=== PATIENT | male | born 1980 | race Caucasian/White ===

== ENCOUNTER 2018-04-01 03:11 | Inpatient (IN) | payer MEDICAID ==
[2018-04-01] MEDS: SOD CHLORIDE 0.9% 2,050 ML IV (03:44)
[2018-04-01 04:10] LABS: PROTIME 13.3 Sec (11.9-14.9)
[2018-04-01 04:11] LABS: PARTIAL THROMBOPLASTIN TIME 29.7 Sec (23.0-35.0)
[2018-04-01 04:12] LABS: ABNORMAL IP MESSAGE 1; HEMOGLOBIN 11.9 g/dl (14.0-18.0); MEAN CORPUSCULAR HEMOGLOBIN 29.5 pg (29.0-33.0); MEAN CORPUSCULAR HGB CONC 32.2 g/dl (32.0-37.0); MEAN CORPUSCULAR VOLUME 91.6 fl (82.0-101.0); MEAN PLATELET VOLUME 11.8 fl (7.4-10.4); PLATELET COUNT 389 10^3/UL (140-415); POSITIVE DIFF @See below; RED BLOOD COUNT 4.04 10^6/ul (4.70-6.10); RED CELL DISTRIBUTION WIDTH 13.2 % (11.5-14.5)
[2018-04-01 04:12] LABS: WHITE BLOOD COUNT 31.8 10^3/ul (4.8-10.8)
[2018-04-01] MEDS: PIPER-TAZO 3.375 GM IV (PMX) 100 ML IVPB (04:13)
[2018-04-01] MEDS: ACETAMINOPHEN 650 MG SUPP PR (04:13)
[2018-04-01 04:19] LABS: ADD MAN DIFF? YES
[2018-04-01 04:22] LABS: TROPONIN-I < 0.012 ng/ml (0.000-0.120)
[2018-04-01 04:41] LABS: ALANINE AMINOTRANSFERASE 44 IU/L (13-69); ALBUMIN 4.4 g/dl (3.3-4.9); ALBUMIN/GLOBULIN RATIO 1.07; ALKALINE PHOSPHATASE 156 IU/L (42-121); ANION GAP 13 (5-13); ASPARTATE AMINO TRANSFERASE 31 IU/L (15-46); BLOOD UREA NITROGEN 40 mg/dl (7-20); CALCIUM 10.9 mg/dl (8.4-10.2); CARBON DIOXIDE 30 mmol/L (21-31); CHLORIDE 111 mmol/L (97-110); CREATININE 1.31 mg/dl (0.61-1.24); Estimated GFR > 60 mL/min (>60); GLUCOSE 241 mg/dl (70-220); POTASSIUM 4.1 mmol/L (3.5-5.1); SODIUM 154 mmol/L (135-144); TOTAL PROTEIN 8.5 g/dl (6.1-8.1)
[2018-04-01 05:14] LABS: URINE PH (Dip) POC 5.5 (5.0-8.5)
[2018-04-01 05:14] LABS: URINE BLOOD (Dip) POC Negative (NEGATIVE); URINE GLUCOSE (Dip) POC Negative (NEGATIVE); URINE KETONES (Dip) POC Negative (NEGATIVE); URINE LEUKOCYTE EST (Dip) POC Negative (NEGATIVE); URINE NITRITE (Dip) POC Positive (NEGATIVE); URINE TOTAL PROTEIN POC 1+ (NEGATIVE)
[2018-04-01] MEDS: VANCOMYCIN 1 GM (PMX) 250 ML IVPB (05:44)
[2018-04-01 05:54] LABS: ADD UMIC YES; UR ASCORBIC ACID 40 mg/dL (NEGATIVE); UR BACTERIA FEW /HPF (NONE SEEN); UR BILIRUBIN (Dip) NEGATIVE (NEGATIVE); UR BLOOD (Dip) NEGATIVE (NEGATIVE); UR CLARITY SLIGHTLY CLOUDY (CLEAR); UR COLOR YELLOW (YELLOW); UR GLUCOSE (Dip) NEGATIVE (NEGATIVE); UR KETONES (Dip) NEGATIVE (NEGATIVE); UR LEUKOCYTE ESTERASE (Dip) NEGATIVE Leu/ul (NEGATIVE); UR MUCUS FEW /HPF (NONE SEEN); UR NITRITE (Dip) NEGATIVE (NEGATIVE); UR RBC 1 /HPF (0-5); UR SQUAMOUS EPITHELIAL CELL FEW /HPF (FEW); UR TOTAL PROTEIN (Dip) 1+ mg/dl (NEGATIVE); UR UROBILINOGEN (Dip) NEGATIVE (NEGATIVE); UR WBC 5 /HPF (0-5)
[2018-04-01] MEDS ORDERED: ALBUTEROL/IPRATROPIUM (NEB) 3 ML AMP HHN (06:00)
[2018-04-01] MEDS ORDERED: HYDROCODONE/APAP (5/325) TAB PO ×2 (06:00)
[2018-04-01] MEDS ORDERED: ONDANSETRON 4 MG INJ IV (06:00)
[2018-04-01] MEDS ORDERED: NACL 0.9% 3 ML SYG IV (06:00)
[2018-04-01] MEDS ORDERED: DEXTROSE 5% 1,000 ML IV (08:00)
[2018-04-01] MEDS ORDERED: VANCOMYCIN IV PER PHARMACY XX (08:00)
[2018-04-01 08:11] LABS: ANISOCYTOSIS 1+ (0-0); BAND NEUTROPHILS #M 2.5 10^3/ul (0.0-0.6); BAND NEUTROPHILS % (M) 8 % (0-4); BASOPHIL #M 0.3 10^3/ul (0.0-0.0); BASOPHILS % (M) 1 % (0-2); LYMPHOCYTES #M 2.5 10^3/ul (0.8-2.9); LYMPHOCYTES % (M) 8 % (15-51); MICROCYTOSIS 1+ (0-0); MONOCYTE #M 1.2 10^3/ul (0.3-0.9); MONOCYTES % (M) 4 % (0-11); PLATELET ESTIMATE NORMAL; POLYCHROMASIA 1+ (0-0); SEG NEUT #M 25.9 10^3/ul (1.6-7.5); SEGMENTED NEUTROPHILS (M) % 79 % (39-77); SMUDGE%M 3 % (0-0)
[2018-04-01 08:24] LABS: CREATININE,URINE RANDOM 121.47 mg/dl (20-370)
[2018-04-01 08:24] LABS: SODIUM,URINE RANDOM 25 mmol/L (30-90)
[2018-04-01] MEDS ORDERED: AZITHROMYCIN 500MG/NS (PMX) 250 ML IVPB (09:00)
[2018-04-01 09:26] LABS: LACTIC ACID 0.9 mmol/L (0.5-2.0)
[2018-04-01] MEDS: SOD CHLORIDE 0.45% 1,000 ML IV ×2 (09:45→21:54)
[2018-04-01] MEDS: CEFEPIME 1GM/50 ML (PMX) 50 ML IVPB (09:53)
[2018-04-01] MEDS: ENOXAPARIN 40 MG/0.4 ML SYG SC (09:55)
[2018-04-01 10:31] LABS: OSMOLALITY,URINE 615 mOsm/kg (250-1200)
[2018-04-01] MEDS ORDERED: GUAIFENESIN/DM 5ML CUP GTB (14:00)
[2018-04-01] MEDS: INSULIN ASPART [NOVOLOG] 3 ML PEN SC ×2 (17:00→20:34)
[2018-04-01] MEDS: VANCOMYCIN HCL 250 MG/5ML POSYG PO ×2 (17:10→17:18)
[2018-04-01] MEDS: INFLUENZA VIRUS VACCINE 0.5 ML (DISPENSING) IM* (17:12)
[2018-04-01] MEDS: FAMOTIDINE 20 MG TAB GTB (20:34)
[2018-04-01] MEDS: LACTOBACILLUS RHAMNOSUS CAP GTB (20:34)
[2018-04-02] MEDS: VANCOMYCIN HCL 250 MG/5ML POSYG PO ×5 (00:01→23:45)
[2018-04-02] MEDS: INSULIN ASPART [NOVOLOG] 3 ML PEN SC ×6 (00:01→20:31)
[2018-04-02] MEDS: ACCU-CHEK XX (02:00)
[2018-04-02 05:50] LABS: ADD MAN DIFF? NO
[2018-04-02 05:54] LABS: BASOPHIL # 0.1 10^3/ul (0.0-0.1); BASOPHILS % 0.4 % (0.0-2.0); EOSINOPHILS # 0.4 10^3/ul (0.0-0.5); HEMATOCRIT 32.7 % (42.0-52.0); HEMOGLOBIN 10.3 g/dl (14.0-18.0); LYMPHOCYTES # 1.7 10^3/ul (0.8-2.9); MEAN CORPUSCULAR HGB CONC 31.5 g/dl (32.0-37.0); MEAN CORPUSCULAR VOLUME 92.1 fl (82.0-101.0); MEAN PLATELET VOLUME 11.2 fl (7.4-10.4); MONOCYTE # 0.9 10^3/ul (0.3-0.9); MONOCYTES % 4.7 % (0.0-11.0); NEUTROPHIL # 16.1 10^3/ul (1.6-7.5); PLATELET COUNT 369 10^3/UL (140-415); RED BLOOD COUNT 3.55 10^6/ul (4.70-6.10); RED CELL DISTRIBUTION WIDTH 13.2 % (11.5-14.5)
[2018-04-02 05:54] LABS: WHITE BLOOD COUNT 19.3 10^3/ul (4.8-10.8)
[2018-04-02] MEDS: VANCOMYCIN 1 GM 250 ML IVPB (06:38)
[2018-04-02 06:42] LABS: ALANINE AMINOTRANSFERASE 62 IU/L (13-69); ALBUMIN 3.6 g/dl (3.3-4.9); ALBUMIN/GLOBULIN RATIO 0.97; ALKALINE PHOSPHATASE 113 IU/L (42-121); ANION GAP 6 (5-13); ASPARTATE AMINO TRANSFERASE 55 IU/L (15-46); BLOOD UREA NITROGEN 26 mg/dl (7-20); CALCIUM 9.8 mg/dl (8.4-10.2); CARBON DIOXIDE 27 mmol/L (21-31); CHLORIDE 118 mmol/L (97-110); CREATININE 0.95 mg/dl (0.61-1.24); Estimated GFR > 60 mL/min (>60); GLUCOSE 153 mg/dl (70-220); MAGNESIUM 2.1 mg/dl (1.7-2.5); POTASSIUM 3.7 mmol/L (3.5-5.1); SODIUM 151 mmol/L (135-144); TOTAL PROTEIN 7.3 g/dl (6.1-8.1)
[2018-04-02] MEDS: SOD CHLORIDE 0.45% 1,000 ML IV ×3 (07:12→23:52)
[2018-04-02 07:15] LABS: THYROID STIMULATING HORMONE 0.592 MIU/L (0.465-4.680)
[2018-04-02 07:23] LABS: HEMOGLOBIN A1C 5.5 % (0-5.9)
[2018-04-02] MEDS: LACTOBACILLUS RHAMNOSUS CAP GTB ×3 (08:15→20:06)
[2018-04-02] MEDS: AZITHROMYCIN 250 MG TAB PEG (08:15)
[2018-04-02] MEDS: ENOXAPARIN 40 MG/0.4 ML SYG SC (08:34)
[2018-04-02 09:26] LABS: PHOSPHORUS 3.4 mg/dl (2.5-4.9)
[2018-04-02 15:42] LABS: CREATININE, RANDOM URINE 116 mg/dL (20-320); MICROALBUMIN 11.6 mg/dL; MICROALBUMIN/CREATININE RATIO 100 (<30)
[2018-04-02] MEDS: FAMOTIDINE 20 MG TAB GTB (20:07)
[2018-04-03] MEDS: INSULIN ASPART [NOVOLOG] 3 ML PEN SC ×6 (01:00→21:00)
[2018-04-03] MEDS: ACCU-CHEK XX (02:00)
[2018-04-03] MEDS: VANCOMYCIN HCL 1.5 GM in SOD CHLORIDE 0.9% 250 ML IVPB (05:30)
[2018-04-03 06:21] LABS: ADD MAN DIFF? NO
[2018-04-03 06:27] LABS: WHITE BLOOD COUNT 14.1 10^3/ul (4.8-10.8)
[2018-04-03 06:27] LABS: BASOPHILS % 0.3 % (0.0-2.0); EOSINOPHILS # 0.5 10^3/ul (0.0-0.5); EOSINOPHILS % 3.6 % (0.0-7.0); HEMATOCRIT 31.2 % (42.0-52.0); LYMPHOCYTES # 1.7 10^3/ul (0.8-2.9); LYMPHOCYTES % 12.2 % (15.0-51.0); MEAN CORPUSCULAR HEMOGLOBIN 28.7 pg (29.0-33.0); MEAN CORPUSCULAR HGB CONC 32.1 g/dl (32.0-37.0); MEAN CORPUSCULAR VOLUME 89.7 fl (82.0-101.0); MEAN PLATELET VOLUME 11.2 fl (7.4-10.4); MONOCYTE # 0.8 10^3/ul (0.3-0.9); MONOCYTES % 5.4 % (0.0-11.0); NEUTROPHIL # 10.9 10^3/ul (1.6-7.5); NEUTROPHILS % 77.8 % (39.0-77.0); PLATELET COUNT 364 10^3/UL (140-415); RED BLOOD COUNT 3.48 10^6/ul (4.70-6.10); RED CELL DISTRIBUTION WIDTH 12.8 % (11.5-14.5)
[2018-04-03] MEDS: VANCOMYCIN HCL 250 MG/5ML POSYG PO ×3 (06:35→16:48)
[2018-04-03 06:56] LABS: ANION GAP 9 (5-13); BLOOD UREA NITROGEN 22 mg/dl (7-20); CALCIUM 9.5 mg/dl (8.4-10.2); CARBON DIOXIDE 26 mmol/L (21-31); CHLORIDE 111 mmol/L (97-110); CREATININE 0.75 mg/dl (0.61-1.24); Estimated GFR > 60 mL/min (>60); GLUCOSE 130 mg/dl (70-220); PHOSPHORUS 3.8 mg/dl (2.5-4.9); POTASSIUM 3.5 mmol/L (3.5-5.1); SODIUM 146 mmol/L (135-144)
[2018-04-03] MEDS: AZITHROMYCIN 250 MG TAB PEG (08:18)
[2018-04-03] MEDS: LACTOBACILLUS RHAMNOSUS CAP GTB ×4 (08:18→21:32)
[2018-04-03] MEDS: ENOXAPARIN 40 MG/0.4 ML SYG SC (08:29)
[2018-04-03] MEDS: SOD CHLORIDE 0.45% 1,000 ML IV (09:27)
[2018-04-03] MEDS: FAMOTIDINE 20 MG TAB GTB (21:32)
[2018-04-04] MEDS: INSULIN ASPART [NOVOLOG] 3 ML PEN SC ×6 (00:33→21:00)
[2018-04-04] MEDS: VANCOMYCIN HCL 250 MG/5ML POSYG PO ×4 (00:34→17:21)
[2018-04-04] MEDS: SOD CHLORIDE 0.45% 1,000 ML IV ×2 (00:34→05:30)
[2018-04-04] MEDS: ACCU-CHEK XX (02:00)
[2018-04-04] MEDS: VANCOMYCIN HCL 1.5 GM in SOD CHLORIDE 0.9% 250 ML IVPB (05:56)
[2018-04-04 06:20] LABS: ADD MAN DIFF? NO
[2018-04-04 06:28] LABS: BASOPHILS % 0.4 % (0.0-2.0); EOSINOPHILS # 0.3 10^3/ul (0.0-0.5); EOSINOPHILS % 3.5 % (0.0-7.0); HEMATOCRIT 29.6 % (42.0-52.0); HEMOGLOBIN 9.6 g/dl (14.0-18.0); LYMPHOCYTES # 1.6 10^3/ul (0.8-2.9); LYMPHOCYTES % 17.2 % (15.0-51.0); MEAN CORPUSCULAR HEMOGLOBIN 28.6 pg (29.0-33.0); MEAN CORPUSCULAR HGB CONC 32.4 g/dl (32.0-37.0); MEAN CORPUSCULAR VOLUME 88.1 fl (82.0-101.0); MEAN PLATELET VOLUME 11.1 fl (7.4-10.4); MONOCYTE # 0.6 10^3/ul (0.3-0.9); MONOCYTES % 5.9 % (0.0-11.0); NEUTROPHIL # 6.9 10^3/ul (1.6-7.5); NEUTROPHILS % 72.4 % (39.0-77.0); PLATELET COUNT 357 10^3/UL (140-415); RED BLOOD COUNT 3.36 10^6/ul (4.70-6.10); RED CELL DISTRIBUTION WIDTH 12.7 % (11.5-14.5)
[2018-04-04 06:28] LABS: WHITE BLOOD COUNT 9.5 10^3/ul (4.8-10.8)
[2018-04-04 07:25] LABS: ANION GAP 9 (5-13); BLOOD UREA NITROGEN 15 mg/dl (7-20); CALCIUM 9.1 mg/dl (8.4-10.2); CARBON DIOXIDE 25 mmol/L (21-31); CHLORIDE 107 mmol/L (97-110); CREATININE 0.65 mg/dl (0.61-1.24); Estimated GFR > 60 mL/min (>60); GLUCOSE 129 mg/dl (70-220); PHOSPHORUS 3.6 mg/dl (2.5-4.9); POTASSIUM 3.4 mmol/L (3.5-5.1); SODIUM 141 mmol/L (135-144)
[2018-04-04] MEDS: LACTOBACILLUS RHAMNOSUS CAP GTB ×3 (09:00→21:04)
[2018-04-04] MEDS: ENOXAPARIN 40 MG/0.4 ML SYG SC (09:34)
[2018-04-04] MEDS: POTASSIUM CHLORIDE 20 MEQ POWDER FOR ORAL SOLN GTB (11:58)
[2018-04-04] MEDS: AZITHROMYCIN 250 MG TAB PEG (11:59)
[2018-04-04] MEDS: AMLODIPINE 10 MG TAB GTB (11:59)
[2018-04-04] MEDS: FAMOTIDINE 20 MG TAB GTB (21:03)
[2018-04-05] MEDS: VANCOMYCIN HCL 250 MG/5ML POSYG PO ×4 (00:13→18:07)
[2018-04-05] MEDS: INSULIN ASPART [NOVOLOG] 3 ML PEN SC ×6 (00:17→20:41)
[2018-04-05] MEDS: ACCU-CHEK XX (02:00)
[2018-04-05 05:38] LABS: ADD MAN DIFF? NO
[2018-04-05 05:45] LABS: BASOPHILS % 0.5 % (0.0-2.0); EOSINOPHILS # 0.3 10^3/ul (0.0-0.5); EOSINOPHILS % 3.1 % (0.0-7.0); HEMATOCRIT 29.5 % (42.0-52.0); LYMPHOCYTES # 1.7 10^3/ul (0.8-2.9); LYMPHOCYTES % 19.4 % (15.0-51.0); MEAN CORPUSCULAR HEMOGLOBIN 28.8 pg (29.0-33.0); MEAN CORPUSCULAR HGB CONC 33.9 g/dl (32.0-37.0); MEAN PLATELET VOLUME 11.1 fl (7.4-10.4); MONOCYTE # 0.6 10^3/ul (0.3-0.9); MONOCYTES % 6.3 % (0.0-11.0); NEUTROPHIL # 6.2 10^3/ul (1.6-7.5); NEUTROPHILS % 69.9 % (39.0-77.0); PLATELET COUNT 407 10^3/UL (140-415); RED BLOOD COUNT 3.47 10^6/ul (4.70-6.10); RED CELL DISTRIBUTION WIDTH 12.6 % (11.5-14.5)
[2018-04-05 05:45] LABS: WHITE BLOOD COUNT 8.8 10^3/ul (4.8-10.8)
[2018-04-05 06:17] LABS: VANCOMYCIN,TROUGH 8.8 ug/ml (10.0-20.0)
[2018-04-05] MEDS: VANCOMYCIN HCL 1.5 GM in SOD CHLORIDE 0.9% 250 ML IVPB (06:18)
[2018-04-05 06:26] LABS: ANION GAP 10 (5-13); BLOOD UREA NITROGEN 11 mg/dl (7-20); CALCIUM 9.5 mg/dl (8.4-10.2); CARBON DIOXIDE 24 mmol/L (21-31); CHLORIDE 106 mmol/L (97-110); CREATININE 0.56 mg/dl (0.61-1.24); Estimated GFR > 60 mL/min (>60); GLUCOSE 122 mg/dl (70-220); MAGNESIUM 2.1 mg/dl (1.7-2.5); PHOSPHORUS 3.5 mg/dl (2.5-4.9); POTASSIUM 3.8 mmol/L (3.5-5.1); SODIUM 140 mmol/L (135-144)
[2018-04-05] MEDS: LACTOBACILLUS RHAMNOSUS CAP GTB ×2 (08:10→20:42)
[2018-04-05] MEDS: AZITHROMYCIN 250 MG TAB PEG (08:10)
[2018-04-05] MEDS: AMLODIPINE 10 MG TAB GTB (08:10)
[2018-04-05] MEDS: ENOXAPARIN 40 MG/0.4 ML SYG SC (08:12)
[2018-04-05] MEDS: PROCHLORPERAZINE 10 MG INJ IV (16:02)
[2018-04-05] MEDS: FAMOTIDINE 20 MG TAB GTB (20:42)
[2018-04-05] MEDS: VANCOMYCIN 750 MG (PMX) 250 ML IVPB (22:22)
[2018-04-06] MEDS: VANCOMYCIN HCL 250 MG/5ML POSYG PO ×4 (00:42→18:26)
[2018-04-06] MEDS: INSULIN ASPART [NOVOLOG] 3 ML PEN SC ×5 (01:00→17:00)
[2018-04-06] MEDS: ACCU-CHEK XX (02:00)
[2018-04-06 05:40] LABS: ADD MAN DIFF? NO
[2018-04-06 05:42] LABS: WHITE BLOOD COUNT 10.8 10^3/ul (4.8-10.8)
[2018-04-06 05:42] LABS: BASOPHILS % 0.4 % (0.0-2.0); EOSINOPHILS # 0.2 10^3/ul (0.0-0.5); EOSINOPHILS % 2.1 % (0.0-7.0); HEMATOCRIT 32.6 % (42.0-52.0); HEMOGLOBIN 10.8 g/dl (14.0-18.0); LYMPHOCYTES % 18.4 % (15.0-51.0); MEAN CORPUSCULAR HEMOGLOBIN 28.6 pg (29.0-33.0); MEAN CORPUSCULAR HGB CONC 33.1 g/dl (32.0-37.0); MEAN CORPUSCULAR VOLUME 86.5 fl (82.0-101.0); MEAN PLATELET VOLUME 10.6 fl (7.4-10.4); MONOCYTE # 0.5 10^3/ul (0.3-0.9); NEUTROPHIL # 7.9 10^3/ul (1.6-7.5); NEUTROPHILS % 73.2 % (39.0-77.0); PLATELET COUNT 430 10^3/UL (140-415); RED BLOOD COUNT 3.77 10^6/ul (4.70-6.10); RED CELL DISTRIBUTION WIDTH 12.6 % (11.5-14.5)
[2018-04-06 06:16] LABS: ANION GAP 9 (5-13); BLOOD UREA NITROGEN 13 mg/dl (7-20); CALCIUM 10.2 mg/dl (8.4-10.2); CARBON DIOXIDE 26 mmol/L (21-31); CHLORIDE 108 mmol/L (97-110); CREATININE 0.63 mg/dl (0.61-1.24); Estimated GFR > 60 mL/min (>60); GLUCOSE 123 mg/dl (70-220); SODIUM 143 mmol/L (135-144)
[2018-04-06 06:17] LABS: PHOSPHORUS 4.4 mg/dl (2.5-4.9)
[2018-04-06] MEDS: AZITHROMYCIN 250 MG TAB PEG (09:14)
[2018-04-06] MEDS: LACTOBACILLUS RHAMNOSUS CAP GTB ×2 (09:14→21:40)
[2018-04-06] MEDS: AMLODIPINE 10 MG TAB GTB (09:15)
[2018-04-06] MEDS: ENOXAPARIN 40 MG/0.4 ML SYG SC (09:19)
[2018-04-06] MEDS: VANCOMYCIN 750 MG (PMX) 250 ML IVPB (10:01)
[2018-04-06] MEDS: ERTAPENEM SODIUM 1 GM in SOD CHLORIDE 0.9% 100 ML IVPB (18:25)
[2018-04-06] MEDS ORDERED: GLUCAGON 1 MG INJ IM (21:00)
[2018-04-06] MEDS ORDERED: GLUCOSE GEL 15 GRAM TUBE BUCCAL (21:00)
[2018-04-06] MEDS ORDERED: DEXTROSE 50% 50 ML SYRINGE IV ×2 (21:00)
[2018-04-06] MEDS ORDERED: GLUCOSE GEL 15 GRAM TUBE PO ×2 (21:00)
[2018-04-06] MEDS: FAMOTIDINE 20 MG TAB GTB (21:40)
[2018-04-06] MEDS: BACLOFEN 10 MG TAB GTB (21:40)
[2018-04-07] MEDS: VANCOMYCIN HCL 250 MG/5ML POSYG PO ×4 (00:40→17:37)
[2018-04-07] MEDS: INSULIN ASPART [NOVOLOG] 3 ML PEN SC ×4 (05:45→17:40)
[2018-04-07 05:56] LABS: ADD MAN DIFF? NO
[2018-04-07 06:04] LABS: WHITE BLOOD COUNT 9.5 10^3/ul (4.8-10.8)
[2018-04-07 06:04] LABS: BASOPHIL # 0.1 10^3/ul (0.0-0.1); BASOPHILS % 0.6 % (0.0-2.0); EOSINOPHILS # 0.2 10^3/ul (0.0-0.5); EOSINOPHILS % 2.2 % (0.0-7.0); HEMOGLOBIN 10.8 g/dl (14.0-18.0); LYMPHOCYTES # 2.1 10^3/ul (0.8-2.9); LYMPHOCYTES % 22.1 % (15.0-51.0); MEAN CORPUSCULAR HEMOGLOBIN 29.1 pg (29.0-33.0); MEAN CORPUSCULAR HGB CONC 33.8 g/dl (32.0-37.0); MEAN CORPUSCULAR VOLUME 86.3 fl (82.0-101.0); MEAN PLATELET VOLUME 10.6 fl (7.4-10.4); MONOCYTE # 0.6 10^3/ul (0.3-0.9); NEUTROPHIL # 6.5 10^3/ul (1.6-7.5); PLATELET COUNT 485 10^3/UL (140-415); RED BLOOD COUNT 3.71 10^6/ul (4.70-6.10); RED CELL DISTRIBUTION WIDTH 12.7 % (11.5-14.5)
[2018-04-07 06:29] LABS: MAGNESIUM 2.2 mg/dl (1.7-2.5)
[2018-04-07 06:30] LABS: PHOSPHORUS 4.9 mg/dl (2.5-4.9)
[2018-04-07 06:40] LABS: ANION GAP 12 (5-13); BLOOD UREA NITROGEN 15 mg/dl (7-20); CALCIUM 10.3 mg/dl (8.4-10.2); CARBON DIOXIDE 25 mmol/L (21-31); CHLORIDE 107 mmol/L (97-110); CREATININE 0.62 mg/dl (0.61-1.24); Estimated GFR > 60 mL/min (>60); GLUCOSE 128 mg/dl (70-220); POTASSIUM 4.4 mmol/L (3.5-5.1); SODIUM 144 mmol/L (135-144)
[2018-04-07] MEDS: LACTOBACILLUS RHAMNOSUS CAP GTB ×2 (09:37→20:37)
[2018-04-07] MEDS: BACLOFEN 10 MG TAB GTB ×2 (09:37→20:37)
[2018-04-07] MEDS: ENOXAPARIN 40 MG/0.4 ML SYG SC (09:38)
[2018-04-07] MEDS: AMLODIPINE 10 MG TAB GTB (09:39)
[2018-04-07] MEDS: ERTAPENEM SODIUM 1 GM in SOD CHLORIDE 0.9% 100 ML IVPB (18:01)
[2018-04-07] MEDS: FAMOTIDINE 20 MG TAB GTB (20:37)
[2018-04-08] MEDS: VANCOMYCIN HCL 250 MG/5ML POSYG PO ×4 (00:46→18:05)
[2018-04-08 05:50] LABS: ADD MAN DIFF? NO
[2018-04-08 05:57] LABS: WHITE BLOOD COUNT 13.9 10^3/ul (4.8-10.8)
[2018-04-08 05:57] LABS: BASOPHIL # 0.1 10^3/ul (0.0-0.1); BASOPHILS % 0.4 % (0.0-2.0); EOSINOPHILS # 0.2 10^3/ul (0.0-0.5); EOSINOPHILS % 1.7 % (0.0-7.0); HEMATOCRIT 32.7 % (42.0-52.0); HEMOGLOBIN 11.1 g/dl (14.0-18.0); LYMPHOCYTES % 14.7 % (15.0-51.0); MEAN CORPUSCULAR HEMOGLOBIN 29.4 pg (29.0-33.0); MEAN CORPUSCULAR HGB CONC 33.9 g/dl (32.0-37.0); MEAN CORPUSCULAR VOLUME 86.7 fl (82.0-101.0); MEAN PLATELET VOLUME 10.4 fl (7.4-10.4); MONOCYTE # 0.8 10^3/ul (0.3-0.9); MONOCYTES % 5.4 % (0.0-11.0); NEUTROPHIL # 10.7 10^3/ul (1.6-7.5); NEUTROPHILS % 77.2 % (39.0-77.0); PLATELET COUNT 531 10^3/UL (140-415); RED BLOOD COUNT 3.77 10^6/ul (4.70-6.10); RED CELL DISTRIBUTION WIDTH 12.9 % (11.5-14.5)
[2018-04-08] MEDS: INSULIN ASPART [NOVOLOG] 3 ML PEN SC ×4 (06:00→21:00)
[2018-04-08 06:26] LABS: PHOSPHORUS 4.3 mg/dl (2.5-4.9)
[2018-04-08 06:56] LABS: MAGNESIUM 2.2 mg/dl (1.7-2.5)
[2018-04-08 07:22] LABS: ANION GAP 9 (5-13); BLOOD UREA NITROGEN 17 mg/dl (7-20); CALCIUM 10.5 mg/dl (8.4-10.2); CARBON DIOXIDE 27 mmol/L (21-31); CHLORIDE 106 mmol/L (97-110); CREATININE 0.63 mg/dl (0.61-1.24); Estimated GFR > 60 mL/min (>60); GLUCOSE 140 mg/dl (70-220); POTASSIUM 4.5 mmol/L (3.5-5.1); SODIUM 142 mmol/L (135-144)
[2018-04-08] MEDS: LACTOBACILLUS RHAMNOSUS CAP GTB ×2 (09:45→20:59)
[2018-04-08] MEDS: BACLOFEN 10 MG TAB GTB ×2 (09:45→20:59)
[2018-04-08] MEDS: AMLODIPINE 10 MG TAB GTB (09:45)
[2018-04-08] MEDS: ENOXAPARIN 40 MG/0.4 ML SYG SC (09:51)
[2018-04-08] MEDS ORDERED: BARIUM SULFATE 135 ML (E-Z HD) PO (12:24)
[2018-04-08] MEDS: FAMOTIDINE 20 MG TAB GTB (21:00)
[2018-04-09] MEDS: VANCOMYCIN HCL 250 MG/5ML POSYG PO ×5 (00:55→23:43)
[2018-04-09] MEDS: INSULIN ASPART [NOVOLOG] 3 ML PEN SC (05:37)
[2018-04-09] MEDS: ENOXAPARIN 40 MG/0.4 ML SYG SC (08:22)
[2018-04-09] MEDS: LACTOBACILLUS RHAMNOSUS CAP GTB ×2 (08:25→20:40)
[2018-04-09] MEDS: BACLOFEN 10 MG TAB GTB ×2 (08:25→20:40)
[2018-04-09] MEDS: AMLODIPINE 10 MG TAB GTB (08:25)
[2018-04-09] MEDS: ACETAMINOPHEN 325 MG TAB PO (17:54)
[2018-04-09] MEDS: FAMOTIDINE 20 MG TAB GTB (20:40)
[2018-04-10] MEDS: VANCOMYCIN HCL 250 MG/5ML POSYG PO ×4 (05:50→23:42)
[2018-04-10] MEDS: LACTOBACILLUS RHAMNOSUS CAP GTB ×2 (10:02→20:29)
[2018-04-10] MEDS: BACLOFEN 10 MG TAB GTB ×2 (10:03→20:29)
[2018-04-10] MEDS: AMLODIPINE 10 MG TAB GTB (10:03)
[2018-04-10] MEDS: ENOXAPARIN 40 MG/0.4 ML SYG SC (10:12)
[2018-04-10] MEDS: FAMOTIDINE 20 MG TAB GTB (20:29)
[2018-04-10] MEDS: SOD CHLORIDE 0.9% 500 ML IV (21:06)
[2018-04-11] MEDS: VANCOMYCIN HCL 250 MG/5ML POSYG PO ×4 (05:46→23:33)
[2018-04-11] MEDS: ENOXAPARIN 40 MG/0.4 ML SYG SC (08:26)
[2018-04-11] MEDS: AMLODIPINE 10 MG TAB GTB (08:28)
[2018-04-11] MEDS: BACLOFEN 10 MG TAB GTB ×2 (08:28→21:05)
[2018-04-11] MEDS: LACTOBACILLUS RHAMNOSUS CAP GTB ×2 (08:28→21:05)
[2018-04-11] MEDS: FAMOTIDINE 20 MG TAB GTB (21:05)
[2018-04-12 05:18] LABS: ADD MAN DIFF? NO
[2018-04-12 05:40] LABS: BASOPHIL # 0.1 10^3/ul (0.0-0.1); BASOPHILS % 0.5 % (0.0-2.0); EOSINOPHILS # 0.2 10^3/ul (0.0-0.5); EOSINOPHILS % 2.2 % (0.0-7.0); HEMATOCRIT 34.8 % (42.0-52.0); HEMOGLOBIN 11.7 g/dl (14.0-18.0); LYMPHOCYTES % 18.3 % (15.0-51.0); MEAN CORPUSCULAR HEMOGLOBIN 29.3 pg (29.0-33.0); MEAN CORPUSCULAR HGB CONC 33.6 g/dl (32.0-37.0); MEAN PLATELET VOLUME 10.6 fl (7.4-10.4); MONOCYTE # 0.6 10^3/ul (0.3-0.9); MONOCYTES % 5.7 % (0.0-11.0); NEUTROPHIL # 8.1 10^3/ul (1.6-7.5); NEUTROPHILS % 72.9 % (39.0-77.0); PLATELET COUNT 583 10^3/UL (140-415); RED CELL DISTRIBUTION WIDTH 13.1 % (11.5-14.5)
[2018-04-12 05:40] LABS: WHITE BLOOD COUNT 11.1 10^3/ul (4.8-10.8)
[2018-04-12] MEDS: VANCOMYCIN HCL 250 MG/5ML POSYG PO ×3 (05:50→17:33)
[2018-04-12 06:13] LABS: ANION GAP 7 (5-13); BLOOD UREA NITROGEN 23 mg/dl (7-20); CALCIUM 10.9 mg/dl (8.4-10.2); CARBON DIOXIDE 29 mmol/L (21-31); CHLORIDE 106 mmol/L (97-110); CREATININE 0.74 mg/dl (0.61-1.24); Estimated GFR > 60 mL/min (>60); GLUCOSE 161 mg/dl (70-220); POTASSIUM 4.5 mmol/L (3.5-5.1); SODIUM 142 mmol/L (135-144)
[2018-04-12 06:16] LABS: PHOSPHORUS 4.5 mg/dl (2.5-4.9)
[2018-04-12 06:16] LABS: MAGNESIUM 2.1 mg/dl (1.7-2.5)
[2018-04-12] MEDS: BACLOFEN 10 MG TAB GTB ×2 (08:14→20:37)
[2018-04-12] MEDS: LACTOBACILLUS RHAMNOSUS CAP GTB ×2 (08:14→20:37)
[2018-04-12] MEDS: AMLODIPINE 10 MG TAB GTB (08:15)
[2018-04-12] MEDS: ENOXAPARIN 40 MG/0.4 ML SYG SC (08:16)
[2018-04-12] MEDS: FAMOTIDINE 20 MG TAB GTB (20:37)
[2018-04-13] MEDS: VANCOMYCIN HCL 250 MG/5ML POSYG PO ×5 (00:24→23:37)
[2018-04-13 07:56] LABS: ADD MAN DIFF? NO
[2018-04-13 08:00] LABS: BASOPHIL # 0.1 10^3/ul (0.0-0.1); BASOPHILS % 0.6 % (0.0-2.0); EOSINOPHILS # 0.3 10^3/ul (0.0-0.5); EOSINOPHILS % 2.2 % (0.0-7.0); HEMATOCRIT 38.7 % (42.0-52.0); HEMOGLOBIN 12.6 g/dl (14.0-18.0); LYMPHOCYTES % 16.5 % (15.0-51.0); MEAN CORPUSCULAR HGB CONC 32.6 g/dl (32.0-37.0); MEAN PLATELET VOLUME 10.8 fl (7.4-10.4); MONOCYTE # 0.8 10^3/ul (0.3-0.9); MONOCYTES % 6.5 % (0.0-11.0); NEUTROPHIL # 8.9 10^3/ul (1.6-7.5); NEUTROPHILS % 73.9 % (39.0-77.0); PLATELET COUNT 547 10^3/UL (140-415); RED BLOOD COUNT 4.35 10^6/ul (4.70-6.10); RED CELL DISTRIBUTION WIDTH 13.2 % (11.5-14.5)
[2018-04-13] MEDS: BACLOFEN 10 MG TAB GTB ×2 (08:21→20:58)
[2018-04-13] MEDS: ENOXAPARIN 40 MG/0.4 ML SYG SC (08:22)
[2018-04-13] MEDS: LACTOBACILLUS RHAMNOSUS CAP GTB ×2 (08:22→20:58)
[2018-04-13] MEDS: AMLODIPINE 10 MG TAB GTB (08:22)
[2018-04-13 08:42] LABS: ALANINE AMINOTRANSFERASE 49 IU/L (13-69); ALBUMIN 4.3 g/dl (3.3-4.9); ALKALINE PHOSPHATASE 124 IU/L (42-121); ANION GAP 7 (5-13); ASPARTATE AMINO TRANSFERASE 32 IU/L (15-46); BLOOD UREA NITROGEN 25 mg/dl (7-20); CALCIUM 10.9 mg/dl (8.4-10.2); CARBON DIOXIDE 29 mmol/L (21-31); CHLORIDE 103 mmol/L (97-110); CREATININE 0.75 mg/dl (0.61-1.24); Estimated GFR > 60 mL/min (>60); GLUCOSE 145 mg/dl (70-220); POTASSIUM 4.5 mmol/L (3.5-5.1); SODIUM 139 mmol/L (135-144); TOTAL PROTEIN 8.2 g/dl (6.1-8.1)
[2018-04-13 08:51] LABS: PHOSPHORUS 4.7 mg/dl (2.5-4.9)
[2018-04-13] MEDS ORDERED: VANCOMYCIN IV PER PHARMACY XX (11:00)
[2018-04-13] MEDS: MEROPENEM 1 GM/50ML(PMX) 50 ML IVPB ×2 (12:29→19:07)
[2018-04-13] MEDS: VANCOMYCIN HCL 1.5 GM in SOD CHLORIDE 0.9% 250 ML IVPB (13:52)
[2018-04-13] MEDS: FAMOTIDINE 20 MG TAB GTB (20:58)
[2018-04-14] MEDS: VANCOMYCIN 750 MG (PMX) 250 ML IVPB ×2 (00:42→13:38)
[2018-04-14] MEDS: MEROPENEM 1 GM/50ML(PMX) 50 ML IVPB ×3 (03:59→18:01)
[2018-04-14 05:56] LABS: ADD MAN DIFF? NO
[2018-04-14 06:05] LABS: BASOPHIL # 0.1 10^3/ul (0.0-0.1); BASOPHILS % 0.5 % (0.0-2.0); EOSINOPHILS # 0.2 10^3/ul (0.0-0.5); HEMATOCRIT 33.7 % (42.0-52.0); HEMOGLOBIN 11.2 g/dl (14.0-18.0); LYMPHOCYTES # 1.3 10^3/ul (0.8-2.9); LYMPHOCYTES % 10.5 % (15.0-51.0); MEAN CORPUSCULAR HEMOGLOBIN 28.9 pg (29.0-33.0); MEAN CORPUSCULAR HGB CONC 33.2 g/dl (32.0-37.0); MEAN CORPUSCULAR VOLUME 87.1 fl (82.0-101.0); MEAN PLATELET VOLUME 10.6 fl (7.4-10.4); MONOCYTE # 0.6 10^3/ul (0.3-0.9); NEUTROPHIL # 9.9 10^3/ul (1.6-7.5); NEUTROPHILS % 81.7 % (39.0-77.0); PLATELET COUNT 574 10^3/UL (140-415); RED BLOOD COUNT 3.87 10^6/ul (4.70-6.10); RED CELL DISTRIBUTION WIDTH 13.2 % (11.5-14.5)
[2018-04-14 06:05] LABS: WHITE BLOOD COUNT 12.1 10^3/ul (4.8-10.8)
[2018-04-14] MEDS: VANCOMYCIN HCL 250 MG/5ML POSYG PO ×3 (06:19→17:59)
[2018-04-14 06:51] LABS: PHOSPHORUS 4.5 mg/dl (2.5-4.9)
[2018-04-14 06:51] LABS: MAGNESIUM 2.1 mg/dl (1.7-2.5)
[2018-04-14 06:57] LABS: ANION GAP 12 (5-13); BLOOD UREA NITROGEN 24 mg/dl (7-20); CALCIUM 10.1 mg/dl (8.4-10.2); CARBON DIOXIDE 25 mmol/L (21-31); CHLORIDE 103 mmol/L (97-110); CREATININE 0.69 mg/dl (0.61-1.24); Estimated GFR > 60 mL/min (>60); GLUCOSE 146 mg/dl (70-220); SODIUM 140 mmol/L (135-144)
[2018-04-14] MEDS: BACLOFEN 10 MG TAB GTB ×2 (08:49→20:20)
[2018-04-14] MEDS: LACTOBACILLUS RHAMNOSUS CAP GTB ×2 (08:49→20:20)
[2018-04-14] MEDS: AMLODIPINE 10 MG TAB GTB (08:49)
[2018-04-14] MEDS: ENOXAPARIN 40 MG/0.4 ML SYG SC (08:53)
[2018-04-14] MEDS: FAMOTIDINE 20 MG TAB GTB (20:20)
[2018-04-15] MEDS: VANCOMYCIN HCL 250 MG/5ML POSYG PO ×4 (00:41→18:03)
[2018-04-15 01:34] LABS: VANCOMYCIN,TROUGH 15.5 ug/ml (10.0-20.0)
[2018-04-15] MEDS: VANCOMYCIN 750 MG (PMX) 250 ML IVPB ×2 (02:10→13:14)
[2018-04-15] MEDS: MEROPENEM 1 GM/50ML(PMX) 50 ML IVPB ×3 (03:58→18:03)
[2018-04-15] MEDS: AMLODIPINE 10 MG TAB GTB (08:56)
[2018-04-15] MEDS: BACLOFEN 10 MG TAB GTB ×2 (08:56→20:52)
[2018-04-15] MEDS: LACTOBACILLUS RHAMNOSUS CAP GTB ×2 (08:56→20:52)
[2018-04-15] MEDS: ENOXAPARIN 40 MG/0.4 ML SYG SC (09:00)
[2018-04-15] MEDS: FAMOTIDINE 20 MG TAB GTB (20:52)
[2018-04-16] MEDS: VANCOMYCIN HCL 250 MG/5ML POSYG PO ×4 (00:02→17:47)
[2018-04-16] MEDS: VANCOMYCIN 750 MG (PMX) 250 ML IVPB ×2 (01:58→14:09)
[2018-04-16] MEDS: MEROPENEM 1 GM/50ML(PMX) 50 ML IVPB ×2 (03:28→11:50)
[2018-04-16] MEDS: LACTOBACILLUS RHAMNOSUS CAP GTB (08:13)
[2018-04-16] MEDS: BACLOFEN 10 MG TAB GTB (08:13)
[2018-04-16] MEDS: AMLODIPINE 10 MG TAB GTB (08:13)
[2018-04-16] MEDS: ENOXAPARIN 40 MG/0.4 ML SYG SC (08:14)
[2018-04-16] MEDS: CHLORPROMAZINE 25 MG INJ IM (16:27)
== END 2018-04-16 19:05 | DRG 871 ==
LOC: 2NE 04-03 18:33 → E/R 03:11 → 6WM 04:53
DX: A41.9 Sepsis, unspecified organism (principal); J69.0 Pneumonitis due to inhalation of food and vomit; G92 Toxic encephalopathy; N17.9 Acute kidney failure, unspecified; E87.0 Hyperosmolality and hypernatremia; A04.72 Enterocolitis due to Clostridium difficile, not specified as recurrent; R65.20 Severe sepsis without septic shock; E86.0 Dehydration; E11.9 Type 2 diabetes mellitus without complications; I10 Essential (primary) hypertension; E78.5 Hyperlipidemia, unspecified; E87.6 Hypokalemia; E83.9 Disorder of mineral metabolism, unspecified; R13.10 Dysphagia, unspecified; R06.6 Hiccough; B96.1 Klebsiella pneumoniae [K. pneumoniae] as the cause of diseases classified elsewhere; D64.9 Anemia, unspecified; Y95 Nosocomial condition; Z93.1 Gastrostomy status; Z86.74 Personal history of sudden cardiac arrest; Z74.01 Bed confinement status
CPT/HCPCS: 71045; 74230; 80048; 80053; 80202; 81001; 81003; 82043; 82962; 83036; 83605; 83735; 83935; 84100; 84155; 84300; 84443; 84484; 85025; 85610; 85730; 87040; 87045; 87075; 87081; 87086; 87400; 90686; 92526; 92610; 92611; 93005; 96374; 97110; 97162; 97530; 99285-25